=== PATIENT | male | born 1995 | race Caucasian/White ===

== ENCOUNTER 2018-04-16 03:34 | Emergency (ER) | payer MEDICAID ==
[~2018-04-16] VITALS: Ht 198.1 cm; Wt 177.3 kg
[2018-04-16] MEDS ORDERED: HYDROcodone/acetaminophen 10/325mg tab PO ONE (03:45)
[2018-04-16] MEDS ORDERED: ondansetron 4mg rapidly disintigrating tab PO ONE (03:45)
[2018-04-16] MEDS ORDERED: LIDOcaine 5% patch TP ONE (04:00)
[2018-04-16] MEDS ORDERED: cyclobenzaprine 10mg tablet PO ONE (04:00)
[2018-04-16] MEDS ORDERED: ibuprofen tablet 400 MG TABLET PO ONE (04:00)
[2018-04-16] MEDS ORDERED: acetaminophen 325mg tablet PO ONE (04:00)
[2018-04-16] MEDS ORDERED: HYDR-3965 PO (04:03)
[2018-04-16] MEDS ORDERED: CYCL-1 PO (04:03)
[2018-04-16] MEDS ORDERED: LIDO700A32 TP (04:03)
[2018-04-16 04:46] VITALS: BP 158/116
== END 2018-04-16 04:50 | disposition home or self-care (01) ==
LOC: ER 03:36
DX: M25.511 Pain in right shoulder (principal); Z79.899 Other long term (current) drug therapy
CPT/HCPCS: 73030; 99284